=== PATIENT | male | born 2000 | race Hispanic/Latino ===

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

== ENCOUNTER 2019-03-05 21:57 | Emergency (ER) | payer BC ==
[2019-03-05] MEDS ORDERED: FAMOTIDINE 20 MG/2 ML VIAL IV ONE (22:46)
[2019-03-05 23:34] LABS: Absolute Lymphocytes (CBC) 1.6 K/uL (0.7-4.9); Basophils % 0.5 % (0-1.3); Hematocrit 44.4 % (39.6-49.0); Lymphocytes % 13.5 % (15.3-44.8); MPV 9.6 fL (7.6-11.3); RBC Red Blood Cell Count 5.14 M/uL (4.33-5.43)
[2019-03-05 23:37] LABS: Albumin 4.4 g/dL (3.4-5.0); Bilirubin Direct 0.2 mg/dL (0-0.2); Bilirubin Total 0.9 mg/dL (0.2-1.0); Protein, Total 7.6 g/dL (6.4-8.2)
--- NOTE | 2019-03-05 23:45 | EDPHYS ---
Physician Documentation [facility] Name: Archie Collins Age: 18 yrs Sex: Male : 2000 Arrival Date: 03/05/2019 Time: 22:02 Bed 18 Private MD: ED Physician Anthony Park HPI: 03/05 22:28 This 18 yrs old Male presents to ER via Ambulatory with complaints of kb Vomiting, VOMITING BLOOD. 22:28 The patient presents to the emergency department with nausea, vomiting, abdominal pain. kb Onset: The symptoms/episode began/occurred today. Possible causes: unknown. The symptoms are aggravated by nothing. The symptoms are alleviated by nothing. Associated signs and symptoms: Pertinent positives: abdominal pain, GI bleeding, nausea, vomiting. Severity of symptoms: At their worst the symptoms were mild in the emergency department the symptoms are unchanged. The patient has experienced a previous episode. The patient has not recently seen a physician. Pt reports he had two episodes of vomiting today and he noticed blood in it. Reports this happened about 2 months ago as well and was seen here, but didn't follow up. reports symptoms resolved after he was here. . Historical: - Allergies: 22:23 No Known Allergies; lp1 - Home Meds: 22:23 None [Active]; lp1 - PMHx: 22:23 None; lp1 - PSHx: 22:23 None; lp1 - Immunization history:: Adult Immunizations up to date. - Social history:: Smoking status: Patient uses tobacco products, smokes one pack cigarettes per day. - Ebola Screening: : No symptoms or risks identified at this time. ROS: 22:28 Constitutional: Negative for fever, chills, and weight loss, Neck: Negative for injury, kb pain, and swelling, Cardiovascular: Negative for chest pain, palpitations, and edema, Respiratory: Negative for shortness of breath, cough, wheezing, and pleuritic chest pain, Back: Negative for injury and pain, : Negative for injury, bleeding, discharge, and swelling, MS/Extremity: Negative for injury and deformity, Skin: Negative for injury, rash, and discoloration, Neuro: Negative for headache, weakness, numbness, tingling, and seizure. 22:28 Abdomen/GI: Positive for abdominal pain, nausea and vomiting, hematemesis. Exam: 22:27 Constitutional: This is a well developed, well nourished patient who is awake, alert, kb and in no acute distress. Head/Face: Normocephalic, atraumatic. ENT: Nares patent. No nasal discharge, no septal abnormalities noted. Tympanic membranes are normal and external auditory canals are clear. Oropharynx with no redness, swelling, or masses, exudates, or evidence of obstruction, uvula midline. Mucous membranes moist. Neck: Trachea midline, no thyromegaly or masses palpated, and no cervical lymphadenopathy. Supple, full range of motion without nuchal rigidity, or vertebral point tenderness. No Meningismus. Chest/axilla: Normal chest wall appearance and motion. Nontender with no deformity. No lesions are appreciated. Cardiovascular: Regular rate and rhythm with a normal S1 and S2. No gallops, murmurs, or rubs. Normal PMI, no JVD. No pulse deficits. Respiratory: Lungs have equal breath sounds bilaterally, clear to auscultation and percussion. No rales, rhonchi or wheezes noted. No increased work of breathing, no retractions or nasal flaring. Back: No spinal tenderness. No costovertebral tenderness. Full range of motion. Skin: Warm, dry with normal turgor. Normal color with no rashes, no lesions, and no evidence of cellulitis. MS/ Extremity: Pulses equal, no cyanosis. Neurovascular intact. Full, normal range of motion. Neuro: Awake and alert, GCS 15, oriented to person, place, time, and situation. Cranial nerves II-XII grossly intact. Motor strength 5/5 in all extremities. Sensory grossly intact. Cerebellar exam normal. Normal gait. 22:27 Abdomen/GI: Inspection: obese Bowel sounds: normal, in all quadrants, Palpation: soft, in all quadrants, mild abdominal tenderness, in the right upper quadrant and left upper quadrant. Vital Signs: 22:22 BP 128 / 70; Pulse 88; Resp 16; Temp 99.2(O); Pulse Ox 99% on R/A; Weight 99.79 kg; lp1 Height 5 ft. 9 in. (175.26 cm); Pain 6/10; 23:21 BP 121 / 66; Pulse 87; Resp 16 S; Pulse Ox 99% on R/A; Pain 2/10; cc3 22:22 Body Mass Index 32.49 (99.79 kg, 175.26 cm) lp1 MDM: 22:13 Patient medically screened. kb 22:27 Data reviewed: vital signs, nurses notes. Data interpreted: Pulse oximetry: on room air kb is 99 %. Interpretation: normal. 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 23:45 ED course: Pt reports he is feeling fine now. No vomiting since arrival.. kb 03/05 22:19 Order name: Basic Metabolic Panel; Complete Time: 23:37 kb 03/05 22:19 Order name: CBC with Diff; Complete Time: 23:35 kb 03/05 22:19 Order name: Hepatic Function; Complete Time: 23:37 kb 03/05 22:19 Order name: Lipase; Complete Time: 23:37 kb 03/05 22:19 Order name: IV Saline Lock; Complete Time: 22:56 kb 03/05 22:19 Order name: Labs collected and sent; Complete Time: 22:56 kb Administered Medications: 22:50 Drug: Pepcid 20 mg Route: IVP; Site: right antecubital; cc3 23:30 Follow up: Response: No adverse reaction; Pain is decreased cc3 Disposition: 03/06 07:02 Co-signature as Attending Physician, Anthony Park MD Available for consultation at ps1 all times . Disposition: 03/05/19 23:45 Discharged to Home. Impression: Upper abdominal pain, unspecified, Vomiting. - Condition is Stable. - Discharge Instructions: Abdominal Pain, Adult, [id number]. - Prescriptions for Protonix 40 mg Oral Tablet - take 1 tablet by ORAL route once daily; 30 tablet. - Medication Reconciliation Form, Thank You Letter, Antibiotic Education, Prescription Opioid Use form. - Follow up: Emergency Department; When: As needed; Reason: Worsening of condition. Follow up: Private Physician; When: 2 - 3 days; Reason: Recheck today's complaints, Continuance of care, Re-evaluation by your physician. Signatures: [facility] Yessy Escobedo FNP-C FNP-Lupe Hardwick, RN RN lp1 Anthony Park MD MD ps1 Flor Woods cc3 Corrections: (The following items were deleted from the chart) 03/05 23:58 23:45 03/05/2019 23:45 Discharged to Home. Impression: Upper abdominal pain, cc3 unspecified; Vomiting. Condition is Stable. Discharge Instructions: Abdominal Pain, Adult, [id number]. Prescriptions for Protonix 40 mg Oral Tablet - take 1 tablet by ORAL route once daily; 30 tablet. and Forms are Medication Reconciliation Form, Thank You Letter, Antibiotic Education, Prescription Opioid Use. Follow up: Emergency Department; When: As needed; Reason: Worsening of condition. Follow up: Private Physician; When: 2 - 3 days; Reason: Recheck today's complaints, Continuance of care, Re-evaluation by your physician. kb
--- NOTE | 2019-03-05 23:45 | ER ---
Nurse's Notes [facility] Name: Archie Collins Age: 18 yrs Sex: Male : 2000 Arrival Date: 03/05/2019 Time: 22:02 Bed 18 Private MD: Diagnosis: Upper abdominal pain, unspecified;Vomiting Presentation: 03/05 22:21 Presenting complaint: Patient states: "I vomited some blood twice today. I've been seen lp1 here before for it and they said it was inflammation"; states pain to epigastric area, feels like heartburn. Transition of care: patient was not received from another setting of care. Onset of symptoms was March 05, 2019. Risk Assessment: Do you want to hurt yourself or someone else? Patient reports no desire to harm self or others. Initial Sepsis Screen: Does the patient meet any 2 criteria? No. Patient's initial sepsis screen is negative. Does the patient have a suspected source of infection? No. Patient's initial sepsis screen is negative. Care prior to arrival: None. 22:21 Method Of Arrival: Ambulatory lp1 22:21 Acuity: MIKEY 3 lp1 Triage Assessment: 22:38 General: Appears in no apparent distress. comfortable, Behavior is calm, cooperative, cc3 appropriate for age. Pain: Complains of pain in left upper quadrant and right upper quadrant. EENT: No signs and/or symptoms were reported regarding the EENT system. Neuro: Level of Consciousness is awake, alert, obeys commands, Oriented to person, place, time, situation, Appropriate for age. Cardiovascular: Denies chest pain, Heart tones S1 S2 present Capillary refill < 3 seconds in bilateral fingers Patient's skin is warm and dry. Respiratory: Airway is patent Respiratory effort is even, unlabored, Respiratory pattern is regular, symmetrical, Breath sounds are clear bilaterally. GI: Abdomen is round non-distended, Reports vomiting blood. : No signs and/or symptoms were reported regarding the genitourinary system. Derm: Skin is intact, is healthy with good turgor, Skin is pink, warm \\T\\ dry. normal. Musculoskeletal: Circulation, motion, and sensation intact. Range of motion: intact in all extremities. Historical: - Allergies: 22:23 No Known Allergies; lp1 - Home Meds: 22:23 None [Active]; lp1 - PMHx: 22:23 None; lp1 - PSHx: 22:23 None; lp1 - Immunization history:: Adult Immunizations up to date. - Social history:: Smoking status: Patient uses tobacco products, smokes one pack cigarettes per day. - Ebola Screening: : No symptoms or risks identified at this time. Screenin:23 Abuse screen: Denies threats or abuse. Denies injuries from another. Nutritional lp1 screening: No deficits noted. Tuberculosis screening: No symptoms or risk factors identified. Fall Risk None identified. Assessment: 22:38 General: see triage assessment. cc3 23:27 Reassessment: Patient appears in no apparent distress at this time. Patient and/or cc3 family updated on plan of care and expected duration. Pain level reassessed. Patient is alert, oriented x 3, equal unlabored respirations, skin warm/dry/pink. 23:55 Reassessment: Patient appears in no apparent distress at this time. Patient and/or cc3 family updated on plan of care and expected duration. Pain level reassessed. Patient is alert, oriented x 3, equal unlabored respirations, skin warm/dry/pink. SONU Norwood discharged the patient home with prescription given. IV cannula removed and patient left ER vitally stable and ambulatory. No valuables left in the patient's room. Patient states feeling better. Patient states symptoms have improved. Vital Signs: 22:22 BP 128 / 70; Pulse 88; Resp 16; Temp 99.2(O); Pulse Ox 99% on R/A; Weight 99.79 kg; lp1 Height 5 ft. 9 in. (175.26 cm); Pain 6/10; 23:21 BP 121 / 66; Pulse 87; Resp 16 S; Pulse Ox 99% on R/A; Pain 2/10; cc3 22:22 Body Mass Index 32.49 (99.79 kg, 175.26 cm) lp1 ED Course: 22:02 Patient arrived in ED. cf2 22:12 Yessy [facility]. kb 22:12 Anthony Park MD is Attending Physician. kb 22:22 Triage completed. lp1 22:23 Arm band placed on. lp1 22:38 Flor Woods is Primary Nurse. cc3 22:38 Patient has correct armband on for positive identification. Bed in low position. Call cc3 light in reach. Side rails up X 1. Pulse ox on. NIBP on. 22:50 Inserted saline lock: 20 gauge in right antecubital area, using aseptic technique. cc3 Blood collected. 23:55 No provider procedures requiring assistance completed. IV discontinued, intact, cc3 bleeding controlled, No redness/swelling at site. Pressure dressing applied. Administered Medications: 22:50 Drug: Pepcid 20 mg Route: IVP; Site: right antecubital; cc3 23:30 Follow up: Response: No adverse reaction; Pain is decreased cc3 Outcome: 23:45 Discharge ordered by MD. lundy 23:55 Discharged to home ambulatory. cc3 23:55 Condition: stable 23:55 Discharge instructions given to patient, Instructed on discharge instructions, follow up and referral plans. medication usage, Demonstrated understanding of instructions, follow-up care, medications, Prescriptions given X 1. 23:58 Patient left the ED. cc3 Signatures: Yessy Norwood FNP-C FNP-Lupe Hardwick RN RN lp1 Flor Woods cc3 Tay Dacosta cf2 Corrections: (The following items were deleted from the chart) 03/06 00:43 10 23:21 BP 121 / 66; Pulse 87bpm; Resp 16bpm; Spontaneous; Pulse Ox 99% RA; cc3 cc3
[2019-03-06 01:24] VITALS: TEMP 99.2; O2SAT 99
[2019-03-06 01:25] VITALS: BP 121/66
== END 2019-03-05 23:58 | disposition home or self-care (01) ==
LOC: ER 21:57
DX: R11.2 Nausea with vomiting, unspecified (principal); R10.10 Upper abdominal pain, unspecified; F17.210 Nicotine dependence, cigarettes, uncomplicated
CPT/HCPCS: 36415; 80048; 80076; 83690; 85025; 96374; 99284

== ENCOUNTER 2024-08-22 09:11 | Emergency (ER) | payer BC, SELFPAY ==
[2024-08-22] MEDS ORDERED: KETOROLAC 30 MG/ML INJ ONE (09:25)
[2024-08-22 09:51] LABS: Absolute Eosinophils 0.1 K/uL (0-0.5); Absolute Lymphocytes (CBC) 0.9 K/uL (0.7-4.9); Absolute Monocytes 0.6 K/uL (0.1-1.3); Absolute Neutrophil 4.9 K/uL (1.8-8.0); Basophils % 0.3 % (0-1.3); Eosinophils % 0.9 % (0-4.4); Hematocrit 42.8 % (39.6-49.0); Hemoglobin 14.6 g/dL (13.6-17.9); Lymphocytes % 13.5 % (15.3-44.8); MCH 29.3 pg (27.0-35.0); MCHC 34.1 g/dL (32.0-36.0); MCV 85.8 fL (80-100); MPV 8.8 fL (7.6-11.3); Monocytes % 9.2 % (3.3-12.3); Neutrophils % 76.1 % (41.7-73.7); Nucleated Red Blood Cells % 0.1 % (0-0); Platelets 242 thou/uL (152-406); RBC Red Blood Cell Count 4.99 M/uL (4.33-5.43); Red Cell Distribution Width 14.1 % (12.1-15.2)
--- NOTE | 2024-08-22 09:59 | RAD REPORT ---
EXAMINATION: ONE VIEW CHEST XR CLINICAL INDICATION: CHEST PAIN TECHNIQUE: Frontal chest projection is submitted. Examination is limited by patient positioning and t echnique. COMPARISON: 12/13/2018 FINDINGS: The lungs are well inflated and clear. The heart is upper limit of normal in size. No displaced fract ures identified. IMPRESSION: No acute intrathoracic abnormalities.
[2024-08-22 10:10] LABS: ALT/SGPT 45 U/L (16-61); AST/SGOT 25 U/L (15-37); Albumin 3.6 g/dL (3.4-5.0); Albumin/Globulin Ratio 1.1 (1.1-1.8); Alkaline Phosphatase 62 U/L (45-117); Anion Gap 9.6 mEq/L (5.0-15.0); BUN Blood Urea Nitrogen 11 mg/dL (7-18); Bicarbonate 26 mEq/L (21-32); Bilirubin Direct 0.3 mg/dL (0-0.2); Bilirubin Indirect, Calculated 1.1 mg/dL (0.2-0.8); Bilirubin Total 1.4 mg/dL (0.2-1.0); Globulin 3.3 g/dL (2.3-3.5); Glomerular Filtration Rate 107 ml/min (=/>90); Glucose Level 99 mg/dL (74-106); Potassium 3.6 mEq/L (3.5-5.1); Protein, Total 6.9 g/dL (6.4-8.2); Sodium Level 136 mEq/L (136-145)
[2024-08-22 10:11] LABS: Troponin High Sensitivity < 3.0 pg/mL (<58.9)
--- NOTE | 2024-08-22 10:17 | EDPHYS ---
Physician Documentation [facility] Name: Archie Collins Age: 23 yrs Sex: Male : 2000 Arrival Date: 08/22/2024 Time: 09:11 Bed 20 Private MD: ED Physician Deni Bermeo HPI: 08/22 09:28 This 23 yrs old Male presents to ER via Ambulatory with complaints of Chest rt Pain. 09:28 Patient presents to the ED with intermittent midsternal chest pain starting last night. rt Patient states that symptoms have persisted to today. Denies other acute complaints at this time. Symptoms are moderate in severity, aching nature, nonradiating, no other aggravating or alleviating factors.. Historical: - Allergies: : No Known Allergies; kc6 - Home Meds: : None [Active]; kc6 - PMHx: : None; kc6 - PSHx: 09:21 None; kc6 - Immunization history:: Client reports having NOT received the Covid vaccine. Flu vaccine is not up to date. - Infectious Disease History:: Denies. - Social history:: Smoking status: Reported history of juuling and/or vaping. - Family history:: not pertinent. ROS: 09:28 Constitutional: Negative for fever, chills, and weight loss, Respiratory: Negative for rt shortness of breath, cough, wheezing, and pleuritic chest pain, Abdomen/GI: Negative for abdominal pain, nausea, vomiting, diarrhea, and constipation, MS/Extremity: Negative for injury and deformity, Skin: Negative for injury, rash, and discoloration, Neuro: Negative for headache, weakness, numbness, tingling, and seizure, :28 Cardiovascular: Positive for chest pain, Negative for edema, Exam: : Constitutional: This is a well developed, well nourished patient who is awake, alert, rt and in no acute distress. Head/Face: Normocephalic, atraumatic. Cardiovascular: Regular rate and rhythm with a normal S1 and S2. No gallops, murmurs, or rubs. Normal PMI, no JVD. No pulse deficits. Respiratory: Lungs have equal breath sounds bilaterally, clear to auscultation and percussion. No rales, rhonchi or wheezes noted. No increased work of breathing, no retractions or nasal flaring. Abdomen/GI: Soft, non-tender, with normal bowel sounds. No distension or tympany. No guarding or rebound. No evidence of tenderness throughout. Skin: Warm, dry with normal turgor. Normal color with no rashes, no lesions, and no evidence of cellulitis. MS/ Extremity: Pulses equal, no cyanosis. Neurovascular intact. Full, normal range of motion. Neuro: Awake and alert, GCS 15, oriented to person, place, time, and situation. Cranial nerves II-XII grossly intact. Motor strength 5/5 in all extremities. Sensory grossly intact. Cerebellar exam normal. Normal gait. 09:28 Chest/axilla: Palpation over anterior chest wall reproduces chest pain, no crepitus. 09:41 ECG was reviewed by the Attending Physician. rt Vital Signs: 09:19 BP 140 / 79; Pulse 78; Resp 16 S; Temp 98.1(O); Pulse Ox 97% on R/A; Weight 104.33 kg kc6 (R); Height 5 ft. 9 in. (R); Pain 7/10; 10:14 BP 123 / 61; Pulse 74; Resp 15 S; Pulse Ox 99% on R/A; kc6 09:19 Body Mass Index 33.96 (104.33 kg, 175.26 cm) kc6 09:19 Pain Scale: Adult kc6 MDM: 09:24 Medical Screening Exam initiated rt 10:16 Differential diagnosis: Chest wall pain, pneumonia, pneumothorax, ACS. HEART Score: rt History: Slightly Suspicious (0), ECG: Normal (0), Age: < or = 45 years (0), Risk Factors: No Risk Factors Known (0), Troponin: < or = 1 x Normal Limit (0), Total Score = 0. Data reviewed: vital signs, nurses notes, lab test result(s), EKG, radiologic studies. I considered the following discharge prescriptions or medication management in the emergency department Medications were administered in the Emergency Department. See MAR. Independent interpretation of the following test(s) in the Emergency Department X-Ray: My interpretation is No consolidation syndrome interpretation of x-ray images. Test considered but Not performed: CT: Low suspicion for PE, PE RC negative, CT angiogram not indicated to rule out pulmonary embolus. Counseling: I had a detailed discussion with the patient and/or guardian regarding the historical points, exam findings, and any diagnostic results supporting the discharge/admit diagnosis, lab results, radiology results, the need for outpatient follow up, to return to the emergency department if symptoms worsen or persist or if there are any questions or concerns that arise at home. Response to treatment: the patient's symptoms have markedly improved after treatment. 08/22 09:28 Order name: Basic Metabolic Panel; Complete Time: 10:12 rt 08/22 09:28 Order name: CBC with Diff; Complete Time: 10:02 rt 08/22 09:28 Order name: LFT's; Complete Time: 10:12 rt 08/22 09:28 Order name: Troponin HS; Complete Time: 10:12 rt 08/22 08:28 Order name: XRAY Chest (1 view); Complete Time: 10:02 rt 08/22 09:28 Order name: Cardiac monitoring; Complete Time: 09:45 rt 08/22 09:28 Order name: EKG - Nurse/Tech; Complete Time: :45 rt 08/22 09:28 Order name: IV Saline Lock; Complete Time: 09:45 rt 08/22 09:28 Order name: Labs collected and sent; Complete Time: 09:45 rt 08/22 09:28 Order name: O2 Per Protocol; Complete Time: :30 rt 08/22 09:28 Order name: O2 Sat Monitoring; Complete Time: :30 rt EC: Rate is 78 beats/min. Rhythm is regular, Normal Sinus Rhythm with No ectopy. QRS [place] rt is Normal. [place] interval is normal. QRS interval is normal. QT interval is normal. No Q waves. T waves are Normal. No ST changes noted. Interpreted by me. Administered Medications: 09:45 Drug: Ketorolac IVP 15 mg IVP once Route: IVP; Site: right forearm; kc6 10:14 Follow up: Response: No adverse reaction kc6 Disposition Summary: 08/22/24 10:16 Discharge Ordered Notes: Location: Home rt Problem: new rt Symptoms: have improved rt Condition: Stable rt Diagnosis - Chest wall pain rt Followup: rt - With: Private Physician - When: 2 - 3 days - Reason: Discharge Instructions: - Discharge Summary Sheet kc6 - Chest Wall Pain rt Forms: - Work release form kc6 - Family Work Release kc6 - Medication Reconciliation Form rt - Antibiotic Education rt - Prescription Opioid Use rt - Patient Portal Instructions rt - Leadership Thank You Letter rt Signatures: Dispatcher [employer] Chrissy Parks RN RN kc6 Deni Bermeo MD MD rt
--- NOTE | 2024-08-22 10:17 | ER ---
Nurse's Notes [facility] Name: Archie Collins Age: 23 yrs Sex: Male : 2000 Arrival Date: 08/22/2024 Time: 09:11 Bed 20 Private MD: Diagnosis: Chest wall pain Presentation: 08/22 09:19 Chief complaint: Patient states: "I've been having pain right in the middle of my chest kc6 since last night. I went to work this morning and it just got worse." pt denies any other symptoms and has not taken anything at home. Coronavirus screen: At this time, the client does not indicate any symptoms associated with coronavirus-19. Ebola Screen: No symptoms or risks identified at this time. Initial Sepsis Screen: Does the patient meet any 2 criteria? No. Patient's initial sepsis screen is negative. Does the patient have a suspected source of infection? No. Patient's initial sepsis screen is negative. Risk Assessment: Do you want to hurt yourself or someone else? Patient reports no desire to harm self or others. Onset of symptoms was August 22, 2024. 09:19 Method Of Arrival: Ambulatory 6 09:19 Acuity: MIKEY 4 kc6 Historical: - Allergies: 09:21 No Known Allergies; kc6 - Home Meds: 09:21 None [Active]; kc6 - PMHx: 09:21 None; kc6 - PSHx: 09:21 None; kc6 - Immunization history:: Client reports having NOT received the Covid vaccine. Flu vaccine is not up to date. - Infectious Disease History:: Denies. - Social history:: Smoking status: Reported history of juuling and/or vaping. - Family history:: not pertinent. Screenin:21 [facility] ED Fall Risk Assessment (Adult) History of falling in the last 3 months, kc6 including since admission No falls in past 3 months (0 pts) Confusion or Disorientation No (0 pts) Intoxicated or Sedated No (0 pts) Impaired Gait No (0 pts) Mobility Assist Device Used No (0 pt) Altered Elimination No (0 pt) Score/Fall Risk Level 0 - 2 = Low Risk Oriented to surroundings, Maintained a safe environment, Educated pt \\T\\ family on fall prevention, incl call for assistance when getting out of bed. Abuse screen: Denies threats or abuse. Denies injuries from another. Nutritional screening: No deficits noted. Tuberculosis screening: No symptoms or risk factors identified. Assessment: 09:22 General: Appears in no apparent distress. comfortable, obese, well groomed, well kc6 developed, Behavior is calm, cooperative, appropriate for age. Pain: Complains of pain in mid-sternal area Pain does not radiate. Pain currently is 7 out of 10 on a pain scale. Pain began 1 day ago. Is continuous. Neuro: Level of Consciousness is awake, alert, obeys commands, Oriented to person, place, time, situation, Appropriate for age. Cardiovascular: Reports chest pain, Heart tones S1 S2 present Capillary refill < 3 seconds. Respiratory: Airway is patent Trachea midline Respiratory effort is even, unlabored, Respiratory pattern is regular, symmetrical. Derm: No signs and/or symptoms reported regarding the dermatologic system. Skin is intact, is healthy with good turgor, Skin is pink, warm \\T\\ dry. 10:14 Reassessment: Patient appears in no apparent distress at this time. No changes from kc6 previously documented assessment. Patient and/or family updated on plan of care and expected duration. Pain level reassessed. Patient is alert, oriented x 3, equal unlabored respirations, skin warm/dry/pink. Vital Signs: 09:19 BP 140 / 79; Pulse 78; Resp 16 S; Temp 98.1(O); Pulse Ox 97% on R/A; Weight 104.33 kg kc6 (R); Height 5 ft. 9 in. (R); Pain 7/10; 10:14 BP 123 / 61; Pulse 74; Resp 15 S; Pulse Ox 99% on R/A; kc6 09:19 Body Mass Index 33.96 (104.33 kg, 175.26 cm) kc6 09:19 Pain Scale: Adult kc6 ED Course: 09:13 Patient arrived in ED. mr 09:15 Deni Bermeo MD is Attending Physician. rt 09:19 Chrissy Victoria, ALEXANDRE is Primary Nurse. kc6 09:21 Triage completed. kc6 09:21 Arm band placed on. kc6 09:21 Patient has correct armband on for positive identification. Bed in low position. Call [facility] light in reach. Side rails up X 1. Adult w/ patient. Pulse ox on. NIBP on. Door closed. Noise minimized. Lights dimmed. Pillow given. Verbal reassurance given. 09:21 Patient maintains SpO2 saturation greater than 95% on room air. kc6 09:45 Initial lab(s) drawn, by me, sent to lab. EKG done, by ED staff, reviewed by Deni Bermeo MD. Inserted saline lock: 20 gauge in right forearm, using aseptic technique. Blood collected. Flushed with 10 mL NS. 09:56 XRAY Chest (1 view) In Process Unspecified. EDMS 10:25 No provider procedures requiring assistance completed. IV discontinued, intact, kc6 bleeding controlled, No redness/swelling at site. Pressure dressing applied. Administered Medications: 09:45 Drug: Ketorolac IVP 15 mg IVP once Route: IVP; Site: right forearm; kc6 10:14 Follow up: Response: No adverse reaction kc6 Medication: 10:26 VIS not applicable for this client. kc6 Outcome: 10:16 Discharge ordered by . rt 10:26 Discharged to home ambulatory, with significant other, kc6 10:26 Condition: improved 10:26 Discharge instructions given to patient, significant other, Instructed on discharge instructions, follow up and referral plans. Demonstrated understanding of instructions, follow-up care, 10:26 Patient left the ED. kc6 Signatures: Dispatcher [employer] Lydia Diamond, Artie Alva mr Chrissy Victoria RN RN Deni Jaime MD MD rt
[2024-08-22 10:35] VITALS: TEMP 98.1
[2024-08-22 10:50] VITALS: BP 123/61; O2SAT 99
--- NOTE | 2024-08-26 11:35 | EKG ---
Test Date: 2024-08-22 Test Time: 09:37:49 Stores Clerk: MARCEL MEASUREMENT RESULTS: Intervals: Rate: 78 NC: 130 QRSD: 114 QT: 382 QTc: 435 [place]: P: 37 NC: 130 QRS: 44 T: 31 INTERPRETIVE STATEMENTS: Normal sinus rhythm Normal ECG No previous ECG available for comparison Electronically Signed On 08-26-24 11:24:28 CDT by Reginaldo Foreman
== END 2024-08-22 10:26 | disposition home or self-care (01) ==
LOC: ER 09:11
DX: R07.89 Other chest pain (principal)
CPT/HCPCS: 36415; 71045; 80048; 80076; 84484; 85025; 93005; 96374; 99284